=== PATIENT | female | born 2000 | race Caucasian/White ===

== ENCOUNTER 2019-07-24 12:34 | Emergency (ER) | payer MEDICAID, OTHER ==
--- NOTE | 2019-07-24 13:02 | ER Document Report ---
ED Medical Screen (RME) - General Stated Complaint: ABDOMINAL PAIN Time Seen by Provider: 07/24/19 12:57 Primary Care Provider: ROXANA TODD MD [Primary Care Provider] - Follow up as needed Mode of Arrival: Ambulatory Information source: Patient Notes: 19-year-old female presented to ED for complaint of pelvic cramping. She states that on July 19 she had a positive test done on the she had a negative test. She states she took 2 test on the and they were both positive but she is continued to have cramping. She states the only other time she has been was when she was 15 she had an . She states her last menstrual period was June 12 of this year. She does not smoke drink or do any drugs. She is just concerned because of the cramping and wants to make sure whether she is or is not . I have greeted and performed a rapid initial assessment of this patient. A comprehensive ED assessment and evaluation of the patient, analysis of test results and completion of medical decision making process will be conducted by an additional ED providers. TRAVEL OUTSIDE OF THE [place] IN LAST 30 DAYS: No - Related Data Allergies/Adverse Reactions: Penicillins Allergy (Verified 07/24/19 12:56) Past Medical History Pulmonary Medical History: Reports: Hx Asthma Psychiatric Medical History: Reports: Hx Attention Deficit Hyperactivity Disorder - Immunizations Immunizations up to date: Yes Hx Diphtheria, Pertussis, Tetanus Vaccination: Yes Physical Exam - Vital signs Vitals: Temp Pulse Resp BP Pulse Ox 98.6 F 86 16 138/73 H 100 07/24/19 12:45 07/24/19 12:45 07/24/19 12:45 07/24/19 12:45 07/24/19 12:45 Course - Vital Signs Vital signs: Temp Pulse Resp BP Pulse Ox 98.6 F 86 16 138/73 H 100 07/24/19 12:45 07/24/19 12:45 07/24/19 12:45 07/24/19 12:45 07/24/19 12:45 Doctor's Discharge - Discharge Referrals: ROXANA TODD MD [Primary Care Provider] - Follow up as needed
[2019-07-24 13:56] LABS: APPEARANCE,URINE CLEAR; BILIRUBIN,URINE NEGATIVE (NEGATIVE); COLOR,URINE STRAW; GLUCOSE, URINE NEGATIVE (NEGATIVE); KETONES,URINE NEGATIVE (NEGATIVE); LEUKOCYTE ESTERASE,URINE NEGATIVE (NEGATIVE); NITRITE,URINE NEGATIVE (NEGATIVE); PROTEIN,URINE NEGATIVE (NEGATIVE); URINE SPECIFIC GRAVITY 1.003; UROBILINOGEN,URINE NEGATIVE mg/dL (<2.0)
[2019-07-24 14:04] LABS: ABSOLUTE LYMPHOCYTES (AUTO) 1.4 10^3/uL (0.5-4.7); ABSOLUTE MONOCYTES (AUTO) 0.3 10^3/uL (0.1-1.4); ABSOLUTE NEUT (AUTO) 3.6 10^3/uL (1.7-8.2); BASOPHILS % (AUTO) 0.5 % (0-2); EOSINOPHILS % (AUTO) 0.6 % (0-6); HEMATOCRIT 37.1 % (36.0-47.0); HEMOGLOBIN 12.8 g/dL (12.0-15.5); LYMPHOCYTES % (AUTO) 26.1 % (13-45); MEAN CORPUSCULAR HEMOGLOBIN 28.7 pg (27.0-33.4); MEAN CORPUSCULAR HGB CONC 34.5 g/dL (32.0-36.0); MEAN CORPUSCULAR VOLUME 83 fl (80-97); MONOCYTES % (AUTO) 5.4 % (3-13); PLATELET COUNT 264 10^3/uL (150-450); RED BLOOD COUNT 4.45 10^6/uL (3.72-5.28); RED CELL DISTRIBUTION WIDTH 13.6 % (11.5-14.0); SEGMENTED NEUTROPHILS % (AUTO) 67.4 % (42-78); TOTAL CELLS COUNTED % (AUTO) 100 %; WHITE BLOOD COUNT 5.4 10^3/uL (4.0-10.5)
[2019-07-24 14:14] LABS: ALBUMIN 4.6 g/dL (3.5-5.0); ALKALINE PHOSPHATASE 60 U/L (38-126); ANION GAP 9 (5-19); ASPARTATE AMINO TRANSFERASE 17 U/L (14-36); BILIRUBIN,DIRECT 0.1 mg/dL (0.0-0.4); BILIRUBIN,TOTAL 0.6 mg/dL (0.2-1.3); BLOOD UREA NITROGEN 8 mg/dL (7-20); CALCIUM 9.8 mg/dL (8.4-10.2); CARBON DIOXIDE 27 mmol/L (22-30); CHLORIDE 103 mmol/L (98-107); GLUCOSE 83 mg/dL (75-110); POTASSIUM 3.7 mmol/L (3.6-5.0); TOTAL PROTEIN 7.9 g/dL (6.3-8.2)
--- NOTE | 2019-07-24 15:28 | RADIOLOGY REPORT (SQ) ---
EXAM DESCRIPTION: U/S NON OB PEL W/DOPPLER COMPLETED DATE/TIME: 07/24/2019 3:19 pm REASON FOR STUDY: Pelvic pain COMPARISON: 02/26/2016 TECHNIQUE: Dynamic and static grayscale images acquired of the pelvis via transvaginal approach and recorded on PACS. Additional selected color Doppler and spectral images recorded. LIMITATIONS: None. FINDINGS: UTERUS: Contour normal. No mass. ENDOMETRIAL STRIPE: No focal or generalized thickening. No masses. CERVIX: No nabothian cysts. RIGHT OVARY AND DOPPLER: Normal size. No worrisome masses. Normal arterial vascular flow without evid ence for torsion. LEFT OVARY AND DOPPLER: Normal size. No worrisome masses. Normal arterial vascular flow without evide nce for torsion. FREE FLUID: There is a small amount of free fluid in the cul-de-sac most likely physiologic. OTHER: No other significant finding. MEASUREMENTS: UTERUS: 7.1 x 4.8 x 4.0 cm. ENDOMETRIAL STRIPE: 1.3 cm. RIGHT OVARY: 2.9 x 2.8 x 1.8 cm. LEFT OVARY: 4.0 x 2.1 x 1.9 cm. IMPRESSION: Trace amount of free fluid the cul-de-sac most likely physiologic. No other significant findings. TECHNICAL DOCUMENTATION: JOB ID: [id number] [employer]- All Rights Reserved Rev-03/09 Reading location - IP/workstation name: [email or web address]
--- NOTE | 2019-07-24 16:04 | ER Document Report ---
ED General - General Chief Complaint: Pelvic Pain Stated Complaint: ABDOMINAL PAIN Time Seen by Provider: 07/24/19 12:57 Primary Care Provider: [facility] [Provider Group] - Follow up in 1 week Mode of Arrival: Ambulatory Notes: Patient is a 19-year-old female presents emergency department for missed menstrual cycle. She states that she feels . She is she G2, P0, incl uding this possible . States that she had 2- tests and 2+ tests at home. She has not seen her primary care provider. She adamantly denies any vaginal discharge, abdominal pain, or any other symptoms. TRAVEL OUTSIDE OF THE [place] IN LAST 30 DAYS: No - Related Data Allergies/Adverse Reactions: Penicillins Allergy (Verified 07/24/19 12:56) Past Medical History - General Information source: Patient - Social History Smoking Status: Never Smoker Family History: Reviewed & Not Pertinent Patient has suicidal ideation: No Patient has homicidal ideation: No Pulmonary Medical History: Reports: Hx Asthma Psychiatric Medical History: Reports: Hx Attention Deficit Hyperactivity Disorder - Immunizations Immunizations up to date: Yes Hx Diphtheria, Pertussis, Tetanus Vaccination: Yes Review of Systems - Review of Systems Notes: REVIEW OF SYSTEMS: CONSTITUTIONAL : Denies recent illness. Denies recent unintentional weight loss. Denies fever, chills, or sweats. EENT: Denies eye, ear, throat, or mouth pain, discharge, or symptoms. Denies nasal or sinus congestion. CARDIOVASCULAR: Denies chest pain. RESPIRATORY: Denies shortness of breath, cough, congestion, difficulty breathing, or wheezing. GASTROINTESTINAL: Denies nausea, vomiting, and diarrhea. Denies abdominal pain. Denies constipation. Last BM: GENITOURINARY: Denies difficulty urinating, burning, blood in urine, urgency or frequency. FEMALE GENITOURINARY: See HPI. MUSCULOSKELETAL: Denies neck and back pain. Denies joint pain or swelling. SKIN: Denies rash, itchiness, or lesions HEMATOLOGIC : Denies easy bruising or bleeding. LYMPHATIC: Denies swollen, painful, enlarged glands. NEUROLOGICAL: Denies no numbness or tingling denies weakness. Denies headache. Denies altered mental status. Denies alteration in speech. PSYCHIATRIC: Denies stress, anxiety, alteration in sleep patterns, or depression. All other systems reviewed and negative. Physical Exam - Vital signs Vitals: Temp Pulse Resp BP Pulse Ox 98.6 F 86 16 138/73 H 100 07/24/19 12:45 07/24/19 12:45 07/24/19 12:45 07/24/19 12:45 07/24/19 12:45 - Notes Notes: PHYSICAL EXAMINATION: GENERAL: Appears well, healthy, well-nourished, no acute distress. HEAD: Normocephalic, atraumatic. EYES: PERRL, conjunctiva normal, all extraocular movements intact, sclera nonicteric ENT: Moist mucous membranes. NECK: Supple, no noticeable swelling, redness, rash. Normal range of motion. LUNGS: Equal breath sounds bilaterally and clear to auscultation. No wheezes rales or rhonchi. CARDIOVASCULAR: S1-S2, regular rate, regular rhythm. Radial pulses 2+, normal. ABDOMEN: Normoactive bowel sounds. Soft, nontender, no guarding, no rebound tenderness, and no masses palpated. EXTREMITIES: Normal strength and range of motion, no pitting or edema. No cyanosis. NEUROLOGICAL: Moves all extremities upon command. Strength 5/5 in all extremities. PSYCH: Normal mood, normal affect. SKIN: Warm, dry. No rash, lesions, ulcerations noted. Normal skin turgor. SCRUMMASTER: White Discharge noted. Cervical motion tenderness noted, no adnexal tenderness noted. Course - Re-evaluation Re-evalutation: 07/24/19 16:01 Transvaginal ultrasound is negative for a tubo-ovarian torsion, or any tubo- ovarian abscess. There is free fluid in the cul-de-sac. I did a pelvic exam with MARK Lara at bedside. There was a small amount of white fluid noted. Cervical motion tenderness noted. Patient states that now she ended up having pain with the pelvic exam and states that she may have had some discharge. Will await wet mount results. 07/24/19 23:07 Wet mount shows 3+ epithelial cells and 3+ bacteria. No yeast or trichomonas noted. Awaiting gonorrhea and chlamydia results. I will empirically treat the patient with 250 mg of Rocephin. If her chlamydia comes back positive, I will call in a prescription for azithromycin. She will be treated with doxycycline and Flagyl for pelvic inflammatory disease. She will follow-up with [facility] or her PAYROLL ASSISTANT. She is in agreement with plan. Follow-up precautions were given. Verbal discharge instructions were given to the patient. They verbalized understanding. They are stable for discharge. - Vital Signs Vital signs: Temp Pulse Resp BP Pulse Ox 98.3 F 92 14 111/78 100 07/24/19 16:52 07/24/19 16:52 07/24/19 16:52 07/24/19 16:52 07/24/19 16:52 - Laboratory Result Diagrams: 07/24/19 13:30 07/24/19 13:30 Discharge - Discharge Clinical Impression: Pelvic inflammatory disease (PID), Bacterial vaginosis Condition: Stable Disposition: HOME, SELF-CARE Instructions: Pelvic Pain ([facility]) Additional Instructions: Your are being treated for pelvic inflammatory disease. You are being started on 2 different antibiotics and you need to take these until you finish them. Please return if you have worsening pain, persistent vomiting, spike a fever greater than 101F, or have any other symptoms that are concerning to you. Please follow closely with you primary care physician or your PAYROLL ASSISTANT at your earliest ability. Prescriptions: Doxycycline Hyclate 100 mg PO BID #28 capsule Metronidazole [Flagyl 500 mg Tablet] 500 mg PO Q6H #28 tablet Referrals: [facility] [Provider Group] - Follow up in 1 week
[2019-07-24 16:17] LABS: BACTERIA (WET MOUNT) 3+ BACTERIA SEEN; EPITHELIALS (WET MOUNT) 3+ EPITHELIALS SEEN; RBCS (WET MOUNT) NO RBCS SEEN; T.VAGINALIS (WET MOUNT) NO TRICHOMONAS SEEN; WBCS (WET MOUNT) FEW WBCS SEEN; YEAST (WET MOUNT) NO YEAST SEEN
[2019-07-24] MEDS ORDERED: CEFTRIAXONE INJ 250 MG VIAL IM ONE (16:22)
[2019-07-24] MEDS ORDERED: LIDOCAINE 1% INJ-PF (10 MG/ML) 30 ML SDV INJ ONE (16:22)
[2019-07-24 16:54] VITALS: BP 111/78
[2019-07-24 17:44] LABS: CHLAM PCR NOT DETECTED (NOT DETECT)
== END 2019-07-24 17:01 | disposition home or self-care (01) ==
LOC: ER 12:34
DX: N73.9 Female pelvic inflammatory disease, unspecified (principal); N76.0 Acute vaginitis; B96.89 Other specified bacterial agents as the cause of diseases classified elsewhere; R10.2 Pelvic and perineal pain; R10.9 Unspecified abdominal pain; J45.909 Unspecified asthma, uncomplicated
CPT/HCPCS: 36415; 87210; 84702; 85025; 80053; 81001; 87491; 87591; 76856; 93976; J3490; J0696

== ENCOUNTER 2020-03-19 20:46 | Inpatient (IN) | payer OTHER ==
[2020-03-19 21:48] LABS: APPEARANCE,URINE SLIGHTLY-CLOUDY; BILIRUBIN,URINE NEGATIVE (NEGATIVE); COLOR,URINE YELLOW; GLUCOSE, URINE NEGATIVE (NEGATIVE); KETONES,URINE NEGATIVE (NEGATIVE); LEUKOCYTE ESTERASE,URINE NEGATIVE (NEGATIVE); NITRITE,URINE NEGATIVE (NEGATIVE); PROTEIN,URINE 30 mg/dL (NEGATIVE); URINE SPECIFIC GRAVITY 1.015; UROBILINOGEN,URINE NEGATIVE mg/dL (<2.0)
[2020-03-19 21:50] LABS: ABSOLUTE LYMPHOCYTES (AUTO) 1.6 10^3/uL (0.5-4.7); ABSOLUTE MONOCYTES (AUTO) 0.6 10^3/uL (0.1-1.4); ABSOLUTE NEUT (AUTO) 8.2 10^3/uL (1.7-8.2); BASOPHILS % (AUTO) 0.2 % (0-2); EOSINOPHILS % (AUTO) 0.3 % (0-6); HEMATOCRIT 28.9 % (36.0-47.0); LYMPHOCYTES % (AUTO) 15.3 % (13-45); MEAN CORPUSCULAR HEMOGLOBIN 28.4 pg (27.0-33.4); MEAN CORPUSCULAR HGB CONC 34.6 g/dL (32.0-36.0); MEAN CORPUSCULAR VOLUME 82 fl (80-97); MONOCYTES % (AUTO) 5.5 % (3-13); PLATELET COUNT 223 10^3/uL (150-450); RED BLOOD COUNT 3.53 10^6/uL (3.72-5.28); RED CELL DISTRIBUTION WIDTH 12.5 % (11.5-14.0); SEGMENTED NEUTROPHILS % (AUTO) 78.7 % (42-78); TOTAL CELLS COUNTED % (AUTO) 100 %; WHITE BLOOD COUNT 10.4 10^3/uL (4.0-10.5)
[2020-03-19 22:02] LABS: URINE BARBITURATES SCREEN NEGATIVE; URINE BENZODIAZEPINES SCREEN NEGATIVE; URINE COCAINE SCREEN NEGATIVE; URINE MARIJUANA (THC) SCREEN NEGATIVE; URINE METHADONE SCREEN NEGATIVE; URINE PHENCYCLIDINE SCREEN NEGATIVE
[2020-03-19 22:12] LABS: URINE AMPHETAMINES SCREEN UNCONFIRMED POSITIVE
[2020-03-19 22:30] LABS: BACTERIA (WET MOUNT) 4+ BACTERIA SEEN; EPITHELIALS (WET MOUNT) 3+ EPITHELIALS SEEN; RBCS (WET MOUNT) 4+ RBCS SEEN; T.VAGINALIS (WET MOUNT) NO TRICHOMONAS SEEN; WBCS (WET MOUNT) 3+ WBCS SEEN; YEAST (WET MOUNT) NO YEAST SEEN
--- NOTE | 2020-03-19 22:58 | RADIOLOGY REPORT (SQ) ---
EXAM DESCRIPTION: US LIMITED COMPLETED DATE/TME: 03/19/2020 00:00 CLINICAL HISTORY: 19 years, Female, cervical length, known previa, bleeding, abrup? COMPARISON: None. TECHNIQUE: Emergent second/third trimester ultrasound LIMITATIONS: None. FINDINGS: There is a single, live intrauterine gestation in the breech presentation. The placenta is 3.1 cm in length. The placenta is anterior in location, and extends inferiorly where it completely covers the cervical os consistent with complete placenta previa. Grade 1 echotexture. heart tones 150 bpm. Amniotic fluid index 13.3 cm. A detailed anatomic assessment was not performed at this time. Approximate weight 4 lbs. 5 oz. Ratios: HC to a.c.: 1.05 FL to BPD: 77.4 FL to HC: 21.1 FL to a.c.: 22.2 Ultrasound age 32 weeks 3 days IMPRESSION: Findings consistent with complete placenta previa, as described above. Single live IUP with ultrasound age 32 weeks 3 days. Close obstetric follow-up recommended. copyright 2010 [employer]- All Rights Reserved
[2020-03-19] MEDS ORDERED: BETAMET ACET/BETAMET NA INJ 6 MG/1 ML IM ONE (23:30)
[2020-03-19] MEDS ORDERED: BETAMET ACET/BETAMET NA INJ 6 MG/1 ML ONE (23:37)
[2020-03-19 23:52] LABS: CHLAM PCR NOT DETECTED (NOT DETECT)
--- NOTE | 2020-03-19 23:58 | Admission Physical ---
Datetime Report Generated by CPN: 03/19/2020 23:58 CURRENT ADMISSION Chief Complaint: Vaginal Bleeding Indication for Induction: Not Applicable Admit Impression : , Intrauterine ; No Active Labor; Intact Membranes; Observation/Evaluation Admit Plan: Admit to Unit; Observation/Evaluation ALLERGIES Medication Allergies: Yes Medication Allergies: Penicillins (07/24/2019) Latex: No Latex Allergies OBSTETRICAL HISTORY EDC: 05/15/2020 00:00 : 2 Para: 0 Placenta Previa/Abruption: Yes SEE RECORDS Alcohol: No Marijuana : No Cocaine: No Other Illicit Drugs: No Cigarettes: Never Smoker. [id number] PHYSICAL EXAM General: Normal HEENT: Normal Neurologic: Normal Thyroid: Deferred Heart: Normal Lungs: Normal Breast: Deferred Back: Normal Abdomen: Normal Genitourinary Exam: Normal Extremities: Normal DTRs: Normal Pelvic Type: Adequate Vital Signs: Reviewed VAGINAL EXAM Dilatation: 0 Effacement: 0 Station: -3 Contraction Comments: none MEMBRANES Membranes: Intact FETUS A EGA: 31.6 Monitoring: External US FHR- Baseline: 120 Variability: Moderate 6-25bpm Accelerations: 15X15 Decelerations: None Presentation: Breech Admit Comment: 19yo at 31+6ega presents for vaginal bleeding. Known complete previa. H/o bleeding episode at [facility] 29, KB negative on that admission. C/S is scheduled for 38+6ega - however, needs to be at 37wks due to complete previa - now ith second bleeding episode. Will send message again to have rescheduled to 37wks. Since 2nd bleeding episode will give steroids. Admit and repeat labs in am. Currently no bleeding - scant blood on SSE, os closed. Cervical length 3.1cm and closed. Pad counts and serial monitoring. Reviewed plan of care. INFORMED CONSENT Informed Consent Obtained: Vaginal Delivery; Risks, Benefits and Alternatives Discussed Signature: with User ID: [email or web address]
--- NOTE | 2020-03-20 00:36 | Non Stress Test Report ---
Non Stress Test Datetime Report Generated by CPN: 03/20/2020 00:36 DEMOGRAPHIC EGA NST: 31.6 INDICATION Indication for Study (NST) Other: gestational age > 32 weeks MONITORING Monitor Explained: Monitor Explained; Test Explained; Patient Verbalized Understanding Time on Monitor: 03/19/2020 21:37 Time off Monitor: 03/19/2020 23:17 NST Duration: 100 NST INTERVENTIONS NST Interventions: PO Hydration; Reposition Patient Physician Notified NST: Dr. Manzo BABY A: [id number] BABY A Movement : Present Contraction Frequency : 0 FHR Baseline : 140 Accelerations : 15X15 Decelerations : None Variability : Moderate 6-25bpm NST Review: Meets Criteria for Reactive NST NST Review and Verified By : JORGE LUIS Garcia NST Results: Reactive NST REPORT Report Trigger: Send Report
[2020-03-20 06:57] LABS: ABSOLUTE LYMPHOCYTES (AUTO) 0.7 10^3/uL (0.5-4.7); ABSOLUTE MONOCYTES (AUTO) 0.2 10^3/uL (0.1-1.4); ABSOLUTE RETICS # 0.089 10^6/uL (0.028-0.122); BASOPHILS % (AUTO) 0.1 % (0-2); HEMOGLOBIN 9.6 g/dL (12.0-15.5); LYMPHOCYTES % (AUTO) 6.3 % (13-45); MEAN CORPUSCULAR HEMOGLOBIN 28.4 pg (27.0-33.4); MEAN CORPUSCULAR HGB CONC 34.5 g/dL (32.0-36.0); MEAN CORPUSCULAR VOLUME 83 fl (80-97); MONOCYTES % (AUTO) 1.6 % (3-13); PLATELET COUNT 204 10^3/uL (150-450); RED BLOOD COUNT 3.39 10^6/uL (3.72-5.28); RED CELL DISTRIBUTION WIDTH 12.8 % (11.5-14.0); RETICULOCYTE COUNT (AUTO) 2.62 % (0.66-2.85); TOTAL CELLS COUNTED % (AUTO) 100 %; WHITE BLOOD COUNT 10.9 10^3/uL (4.0-10.5)
[2020-03-20 07:17] LABS: IRON(TIBC) 32.7 ug/dL (37-170)
[2020-03-20 07:49] LABS: INTERNATIONAL RATION (INR) 0.96; PROTHROMBIN TIME 12.8 SEC (11.4-15.4)
[2020-03-20 07:50] LABS: PARTIAL THROMBOPLASTIN TIME 25.7 SEC (23.5-35.8)
[2020-03-20 07:52] LABS: FERRITIN 4.61 ng/mL (6.2-137.0)
[2020-03-20 08:28] LABS: FOLATE > 20.00 ng/mL (>2.76)
--- NOTE | 2020-03-20 08:59 | PDOC PROGRESS REPORT ---
Subjective Progress Note for:: 03/20/20 Subjective:: Dark brown blood today. Reason For Visit: Physical Exam - Physical Exam Vital Signs: Temp Pulse Resp BP Pulse Ox 97.8 F 102 H 18 111/56 L 98 03/20/20 07:20 03/20/20 07:20 03/20/20 07:20 03/20/20 07:20 03/20/20 07:20 Intake & Output 03/19/20 03/20/20 03/21/20 06:59 06:59 06:59 Output Total 0 Balance 0 Weight 94.8 kg General appearance: PRESENT: no acute distress, well-developed, well-nourished Head exam: PRESENT: atraumatic, normocephalic Result Laboratory Results: 03/20/20 06:18 03/19/20 03/19/20 03/19/20 20:59 21:35 21:35 WBC 10.4 RBC 3.53 L Hgb 10.0 L Hct 28.9 L MCV 82 MCH 28.4 MCHC 34.6 RDW 12.5 Plt Count 223 Seg Neutrophils % 78.7 H Retic Count (auto) Iron TIBC % Saturation Transferrin Ferritin Vitamin B12 Folate Urine Color YELLOW Urine Appearance SLIGHTLY-CLOUDY Urine pH 6.0 Ur Specific [place] 1.015 Urine Protein 30 H Urine Glucose (UA) NEGATIVE Urine Ketones NEGATIVE Urine Blood LARGE H Urine Nitrite NEGATIVE Ur Leukocyte Esterase NEGATIVE Urine WBC (Auto) 4 Urine RBC (Auto) 66 Blood Type A POSITIVE Antibody Screen NEGATIVE 03/20/20 03/20/20 03/20/20 06:18 06:18 06:18 WBC 10.9 H RBC 3.39 L Hgb 9.6 L Hct 28.0 L MCV 83 MCH 28.4 MCHC 34.5 RDW 12.8 Plt Count 204 Seg Neutrophils % 92.0 H Retic Count (auto) 2.62 Iron 32.7 L TIBC 495 H % Saturation 7 Transferrin 369.20 Ferritin 4.61 L Vitamin B12 198.0 L Folate > 20.00 Urine Color Urine Appearance Urine pH Ur Specific [place] Urine Protein Urine Glucose (UA) Urine Ketones Urine Blood Urine Nitrite Ur Leukocyte Esterase Urine WBC (Auto) Urine RBC (Auto) Blood Type Antibody Screen Impressions: Obstetrics Ultrasound 03/19/20 00:00 IMPRESSION: Findings consistent with complete placenta previa, as described above. Single live IUP with ultrasound age 32 weeks 3 days. Close obstetric follow-up recommended. copyright 2010 [employer]- All Rights Reserved Assessment & Plan - Diagnosis (1) Anemia Qualifiers: Anemia type: iron deficiency Is this a current diagnosis for this admission?: Yes (2) Complete placenta previa with hemorrhage, third trimester Is this a current diagnosis for this admission?: Yes - Time Time Spent with patient: 15-24 minutes - Plan Summary Plan Summary: plan to complete steroid series. continue rest
[2020-03-20] MEDS: DOCUSATE SODIUM 100 MG CAPSULE PO SCH ×2 (10:14→17:29)
[2020-03-20] MEDS: FERROUS SULFATE 325 MG TABLET PO SCH (10:14)
[2020-03-20] MEDS ORDERED: BETAMET ACET/BETAMET NA INJ 6 MG/1 ML IM SCH ×2 (17:30→23:00)
[2020-03-21 09:27] VITALS: BP 95/61
[2020-03-21] MEDS: DOCUSATE SODIUM 100 MG CAPSULE PO SCH (09:48)
[2020-03-21] MEDS: FERROUS SULFATE 325 MG TABLET PO SCH (09:48)
== END 2020-03-21 14:44 | disposition home or self-care (01) | DRG 833 ==
LOC: LC 20:46 → OBSVTOIN 23:11 → LR 23:11 → 2S 03-20 00:56
PROVIDERS: ADMIT Student in an Organized Health Care Education/Training Program; ATTEND Student in an Organized Health Care Education/Training Program
DX: O44.13 Complete placenta previa with hemorrhage, third trimester (principal); O99.013 Anemia complicating pregnancy, third trimester; D50.9 Iron deficiency anemia, unspecified; Z3A.31 31 weeks gestation of pregnancy; Z88.0 Allergy status to penicillin
CPT/HCPCS: 36415; 59025; 76815; 80307; 81001; 82607; 82728; 82746; 83540; 83550; 84466; 85025; 85045; 85460; 85610; 85730; 86592; 86850; 86900; 86901; 87210; 87491; 87591; J0702

== ENCOUNTER 2020-03-25 16:33 | Outpatient (CLI) | payer OTHER ==
[2020-03-25 17:25] LABS: APPEARANCE,URINE CLEAR; BILIRUBIN,URINE NEGATIVE (NEGATIVE); COLOR,URINE STRAW; GLUCOSE, URINE NEGATIVE (NEGATIVE); KETONES,URINE NEGATIVE (NEGATIVE); LEUKOCYTE ESTERASE,URINE NEGATIVE (NEGATIVE); NITRITE,URINE NEGATIVE (NEGATIVE); PROTEIN,URINE NEGATIVE (NEGATIVE); URINE SPECIFIC GRAVITY 1.009; UROBILINOGEN,URINE NEGATIVE mg/dL (<2.0)
[2020-03-25 18:29] LABS: URINE BARBITURATES SCREEN NEGATIVE; URINE BENZODIAZEPINES SCREEN NEGATIVE; URINE COCAINE SCREEN NEGATIVE; URINE MARIJUANA (THC) SCREEN NEGATIVE; URINE METHADONE SCREEN NEGATIVE; URINE PHENCYCLIDINE SCREEN NEGATIVE
[2020-03-25 18:31] LABS: URINE AMPHETAMINES SCREEN UNCONFIRMED POSITIVE
--- NOTE | 2020-03-25 18:56 | RADIOLOGY REPORT (SQ) ---
EXAM DESCRIPTION: U/S OB LIMITED IMAGES COMPLETED DATE/TIME: 03/25/2020 6:34 pm REASON FOR STUDY: cervical length, placenta, brown discharge COMPARISON: 03/19/2020. TECHNIQUE: Limited transabdominal grayscale ultrasound for evaluation of specific requested obstetri maurice parameters. LIMITATIONS: None. FINDINGS: CERVICAL LENGTH: 3.1 cm Closed. ARCADIO: 13.1 cm. LVP 6.5 cm x 6.2 cm with the vernix. FHR: 173 beats per minute. PRESENTATION: Breech. PLACENTA: Posterior. ANATOMY: Not assessed OTHER: The patient has a known history of placenta previa. IMPRESSION: LIMITED OBSTETRICAL ULTRASOUND WITH MEASURED PARAMETERS DELINEATED ABOVE. Trimester of : Third trimester - 28 weeks to delivery. TECHNICAL DOCUMENTATION: JOB ID: [id number] [employer]- All Rights Reserved Reading location - IP/workstation name: [email or web address]
--- NOTE | 2020-03-25 19:22 | Non Stress Test Report ---
Non Stress Test Datetime Report Generated by CPN: 03/25/2020 19:22 DEMOGRAPHIC EGA NST: 32.5 INDICATION Indication for Study (NST) Other: LABOR CHECK VITAL SIGNS Temperature - NST: 99.0 Pulse - NST: 107 RESP - NST: 20 NBPSYS NST: 92 NBPDIA NST: 52 MONITORING Monitor Explained: Monitor Explained; Test Explained; Patient Verbalized Understanding Time on Monitor: 03/25/2020 16:56 Time off Monitor: 03/25/2020 18:05 NST Duration: 69 NST INTERVENTIONS NST Interventions: PO Hydration; Reposition Patient Physician Notified NST: DR MOHAN REVIEWED STRIP BABY A: [id number] BABY A Movement : Present Contraction Frequency : X2 FHR Baseline : 145 Accelerations : 15X15 Decelerations : None Variability : Moderate 6-25bpm NST Review: Meets Criteria for Reactive NST NST Review and Verified By : Eva NST Results: Reactive NST REPORT Report Trigger: Send Report
== END 2020-03-25 18:59 | disposition home or self-care (01) ==
LOC: LC 16:33
PROVIDERS: ATTEND Student in an Organized Health Care Education/Training Program
DX: O46.93 Antepartum hemorrhage, unspecified, third trimester (principal); R10.2 Pelvic and perineal pain; Z3A.32 32 weeks gestation of pregnancy; Z88.0 Allergy status to penicillin
CPT/HCPCS: 59025; 76815; 80307; 81001

== ENCOUNTER 2020-04-05 07:32 | Inpatient (IN) | payer OTHER ==
[2020-04-05] MEDS ORDERED: RINGERS SOLUTION,LACTATED 1,000 ML IV ONE (07:48)
[2020-04-05] MEDS ORDERED: RINGERS SOLUTION,LACTATED 1,000 ML IV PRN ×3 (07:48→15:42)
--- NOTE | 2020-04-05 08:35 | Admission Physical ---
Datetime Report Generated by CPN: 04/05/2020 08:35 CURRENT ADMISSION Chief Complaint: Uterine Contractions; Suspected Ruptured Membranes; Vaginal Bleeding Indication for Induction: Not Applicable Admit Impression : , Intrauterine ; Primary Section Admit Impression- Other: Previa Admit Plan: Admit to Unit ALLERGIES Medication Allergies: Yes Medication Allergies: Penicillins (07/24/2019) Latex: Unknown OBSTETRICAL HISTORY EDC: 05/15/2020 00:00 : 2 Para: 0 Placenta Previa/Abruption: Yes Depression/PP Depression: Yes Current Procedures: Ultrasound SEE RECORDS Alcohol: No Marijuana : No Cocaine: No Other Illicit Drugs: No Cigarettes: Never Smoker. [id number] MEDICAL HISTORY Pulmonary Disease (Asthma, TB): Yes Medical History Comments: ADD PHYSICAL EXAM General: Normal HEENT: Normal Neurologic: Normal Thyroid: Normal Heart: Normal Lungs: Normal Breast: Deferred Back: Normal Abdomen: Normal Genitourinary Exam: Normal Extremities: Normal DTRs: Normal Pelvic Type: Adequate Vital Signs: Reviewed VAGINAL EXAM Dilatation: 0 Effacement: 0 Station: -3 Contraction Comments: none MEMBRANES Membranes: Intact FETUS A EGA: 34.2 Monitoring: External US FHR- Baseline: 120 Variability: Moderate 6-25bpm Accelerations: 15X15 Decelerations: None FHR Category: Category I Presentation: Breech Admit Comment: Third bleed with placenta previa. She now has SROM. We will proceed with delivery with C section. INFORMED CONSENT Informed Consent Obtained: Vaginal Delivery; Risks, Benefits and Alternatives Discussed Signature: with User ID: [email or web address]
[2020-04-05] MEDS ORDERED: CEFAZOLIN SODIUM 2 GM in DEXTROSE 5%-WATER 50 ML IV PRN (08:45)
[2020-04-05] MEDS ORDERED: CITRIC ACID/SODIUM CITRATE ORAL SOLN 15 ML UDCUP ONE (08:47)
[2020-04-05] MEDS ORDERED: CEFAZOLIN 1 GM/D5W RTU 0 GM/0 ML RTUPB IV ONE (08:47)
[2020-04-05] MEDS ORDERED: AZITHROMYCIN 500 MG in DEXTROSE 5%-WATER 250 ML IV PRN (08:52)
[2020-04-05] MEDS ORDERED: AZITHROMYCIN INJ 500 MG VIAL IV ONE (09:09)
[2020-04-05] MEDS ORDERED: MISOPROSTOL 0.2 MG TABLET ONE (09:17)
[2020-04-05 09:22] LABS: ABSOLUTE LYMPHOCYTES (AUTO) 1.5 10^3/uL (0.5-4.7); ABSOLUTE MONOCYTES (AUTO) 0.5 10^3/uL (0.1-1.4); BASOPHILS % (AUTO) 0.3 % (0-2); EOSINOPHILS % (AUTO) 0.5 % (0-6); HEMATOCRIT 31.5 % (36.0-47.0); HEMOGLOBIN 10.6 g/dL (12.0-15.5); LYMPHOCYTES % (AUTO) 18.3 % (13-45); MEAN CORPUSCULAR HEMOGLOBIN 28.5 pg (27.0-33.4); MEAN CORPUSCULAR HGB CONC 33.8 g/dL (32.0-36.0); MEAN CORPUSCULAR VOLUME 84 fl (80-97); MONOCYTES % (AUTO) 6.4 % (3-13); PLATELET COUNT 172 10^3/uL (150-450); RED BLOOD COUNT 3.73 10^6/uL (3.72-5.28); RED CELL DISTRIBUTION WIDTH 14.4 % (11.5-14.0); SEGMENTED NEUTROPHILS % (AUTO) 74.5 % (42-78); TOTAL CELLS COUNTED % (AUTO) 100 %
[2020-04-05 09:25] LABS: APPEARANCE,URINE SLIGHTLY-CLOUDY; BILIRUBIN,URINE NEGATIVE (NEGATIVE); COLOR,URINE YELLOW; GLUCOSE, URINE NEGATIVE (NEGATIVE); KETONES,URINE NEGATIVE (NEGATIVE); LEUKOCYTE ESTERASE,URINE NEGATIVE (NEGATIVE); NITRITE,URINE NEGATIVE (NEGATIVE); PROTEIN,URINE 30 mg/dL (NEGATIVE); URINE SPECIFIC GRAVITY 1.014; UROBILINOGEN,URINE NEGATIVE mg/dL (<2.0)
[2020-04-05 09:47] LABS: URINE BARBITURATES SCREEN NEGATIVE; URINE BENZODIAZEPINES SCREEN NEGATIVE; URINE COCAINE SCREEN NEGATIVE; URINE MARIJUANA (THC) SCREEN NEGATIVE; URINE METHADONE SCREEN NEGATIVE; URINE PHENCYCLIDINE SCREEN NEGATIVE
[2020-04-05] MEDS ORDERED: KETOROLAC TROMETHAMINE INJ/PF 30 MG/1 ML SDV ONE (09:47)
[2020-04-05] MEDS ORDERED: OXYTOCIN 10 UNIT/ML VIAL ONE ×2 (09:47→10:35)
[2020-04-05] MEDS ORDERED: FENTANYL CITRATE INJ/PF 100 MCG/2 ML AMPUL ONE (09:47)
[2020-04-05] MEDS ORDERED: OXYTOCIN/0.9 % SODIUM CHLORIDE 0 UNIT/0 ML RTUINJ ONE (09:48)
[2020-04-05] MEDS ORDERED: ACETAMINOPHEN 1,000 MG/100 ML RTUPB IV ONE (09:48)
[2020-04-05] MEDS ORDERED: ONDANSETRON HCL INJ/PF 4 MG/2 ML SDV ONE (09:48)
[2020-04-05] MEDS ORDERED: MIDAZOLAM 2 MG/2 ML INJ ONE (09:48)
[2020-04-05] MEDS ORDERED: EPHEDRINE SULFATE INJ 50 MG/1 ML AMPULE ONE (09:48)
[2020-04-05 09:53] LABS: URINE AMPHETAMINES SCREEN UNCONFIRMED POSITIVE
[2020-04-05] MEDS ORDERED: ACETAMINOPHEN 1,000 MG/100 ML RTUPB IV PRN (11:01)
[2020-04-05] MEDS ORDERED: DIPH/PERTUSS(ACELL)/TETANUS VAC/PF 0.5 ML SYR (>=10YO) IM PRN (11:01)
[2020-04-05] MEDS ORDERED: OXYTOCIN/0.9 % SODIUM CHLORIDE 30 UNIT/500 ML RTUINJ IV PRN (11:01)
[2020-04-05] MEDS ORDERED: OXYCODONE-ACETAMINOPHEN 5-325 MG TABLET PO PRN (11:01)
[2020-04-05] MEDS ORDERED: ACETAMINOPHEN 325 MG TABLET PO PRN (11:01)
[2020-04-05] MEDS ORDERED: PROMETHAZINE HCL INJ 25 MG/1 ML VIAL IV PRN (11:01)
[2020-04-05] MEDS ORDERED: SIMETHICONE 80 MG TAB.CHEW PO PRN (11:01)
[2020-04-05] MEDS ORDERED: MEASLES,MUMPS&RUBELLA VACC/PF 0.5 ML VIAL SUBCUT PRN (11:01)
--- NOTE | 2020-04-05 11:07 | Operative Report ---
Operative Report DATE OF SURGERY: 04/05/20 PREOPERATIVE DIAGNOSIS: Placenta previa with ruptured membranes and bleeding POSTOPERATIVE DIAGNOSIS: Placenta previa with a posterior accreta with rupture membranes and bleeding OPERATION: Primary via low transverse uterine incision SURGEON: KIT ENCARNACION ANESTHESIA: Spinal TISSUE REMOVED OR ALTERED: Placenta COMPLICATIONS: Placenta accreta ESTIMATED BLOOD LOSS: 800 cc INTRAOPERATIVE FINDINGS: Viable infant crying at delivery. Tubes and ovaries were normal. Patient had a placenta previa with a piece of placenta and an accreta attachment to the posterior wall of the uterus. PROCEDURE: Patient was taken to the OR and placed in supine position after her spinal anesthesia. She is prepared and draped in sterile fashion. Jackson was placed for drainage of the bladder. Low transverse incision was made and carried down the level of the fascia. The fascial incision was made with knife and extended bilaterally with curved Ferguson scissors. The fascia was off the rectus muscles using sharp and blunt dissection. The rectus muscles are in the midline. The peritoneum was entered without incident. Bladder blade was placed in uterine segment was identified. A low transverse incision was made creating a bladder flap. Bladder blade was placed low transverse uterine incision was made with the knife and extended with fingertips. The baby was delivered with some fundal pressure. Mouth and nose were suctioned free. The cord is doubly clamped and cut. Baby is passed off to the insurance office supervisor in attendance. The placenta was manually extracted with trailing membranes. A portion of the placenta near the cervix was delivered separately than the rest of the placenta. And appeared to be attached to the posterior wall of the uterus. The area of attachment was oversewn with interrupted [id number] 0 chromic suture which stopped the majority of the bleeding. The uterus was externalized wrapped in a moist lap sponge. Uterine contents wiped free. Uterus was closed with a running locking layer of 0 chromic suture using the second layer to imbricate the first completing a double layer closure of the uterus. The serosa was closed with a running 2-0 chromic stitch. The pelvis was irrigated and suctioned free of fluid the uterus was replaced in the abdomen. The abdominal wall peritoneum was closed with running 2-0 chromic stitch. Fascia was closed with a running 0 Vicryl in 2 segments. Sb's layer was brought together with 0 plain gut stitch and the skin was closed with running subcuticular 4-0 undyed Vicryl stitch. The wound was dressed mother and baby did well.
[2020-04-05 12:09] LABS: MEAN CORPUSCULAR HEMOGLOBIN 28.4 pg (27.0-33.4); MEAN CORPUSCULAR HGB CONC 33.5 g/dL (32.0-36.0); MEAN CORPUSCULAR VOLUME 85 fl (80-97); PLATELET COUNT 168 10^3/uL (150-450); RED BLOOD COUNT 2.83 10^6/uL (3.72-5.28); RED CELL DISTRIBUTION WIDTH 14.1 % (11.5-14.0); WHITE BLOOD COUNT 9.3 10^3/uL (4.0-10.5)
[2020-04-05] MEDS ORDERED: PROMETHAZINE HCL INJ 25 MG/1 ML VIAL ONE (12:45)
[2020-04-05] MEDS ORDERED: HYDROMORPHONE HCL INJ/PF 2 MG/ML AMPULE ONE (12:45)
[2020-04-05] MEDS: HYDROMORPHONE HCL INJ/PF 2 MG/ML AMPULE IV PRN ×2 (12:50→20:21)
[2020-04-05] MEDS: KETOROLAC TROMETHAMINE INJ/PF 30 MG/1 ML SDV IV SCH ×2 (14:11→21:36)
[2020-04-05] MEDS: DOCUSATE SODIUM 100 MG CAPSULE PO SCH (17:20)
[2020-04-05] MEDS: OXYCODONE-ACETAMINOPHEN 5-325 MG TABLET PO PRN (17:20)
[2020-04-06] MEDS: OXYCODONE-ACETAMINOPHEN 5-325 MG TABLET PO PRN ×2 (03:52→14:56)
[2020-04-06] MEDS: KETOROLAC TROMETHAMINE INJ/PF 30 MG/1 ML SDV IV SCH (05:42)
[2020-04-06 07:04] LABS: HEMATOCRIT 22.3 % (36.0-47.0); MEAN CORPUSCULAR HEMOGLOBIN 28.7 pg (27.0-33.4); MEAN CORPUSCULAR HGB CONC 33.7 g/dL (32.0-36.0); MEAN CORPUSCULAR VOLUME 85 fl (80-97); PLATELET COUNT 153 10^3/uL (150-450); RED BLOOD COUNT 2.62 10^6/uL (3.72-5.28); RED CELL DISTRIBUTION WIDTH 14.4 % (11.5-14.0); WHITE BLOOD COUNT 10.9 10^3/uL (4.0-10.5)
[2020-04-06 07:09] LABS: HEMOGLOBIN 7.5 g/dL (12.0-15.5)
[2020-04-06] MEDS ORDERED: IRON SUCROSE COMPLEX INJ/PF 100 MG/5 ML SDV IV ONE (09:30)
[2020-04-06] MEDS: PRENATAL VITAMIN W DHA CAPSULE PO SCH (09:34)
[2020-04-06] MEDS: DOCUSATE SODIUM 100 MG CAPSULE PO SCH ×2 (09:34→17:03)
--- NOTE | 2020-04-06 09:40 | PDOC PROGRESS REPORT ---
Subjective-OB Progress Note for:: 04/06/20 Subjective: Pt doing well, no concerns. She is ambulatory, reports reg diet, voiding without difficulty, light bleeding and +flatus. Physical Exam (OB) Vital Signs: Temp Pulse Resp BP Pulse Ox 97.8 F 71 18 99/45 L 100 04/06/20 07:28 04/06/20 07:28 04/06/20 07:28 04/06/20 07:28 04/06/20 07:28 Intake & Output 04/05/20 04/06/20 04/07/20 06:59 06:59 06:59 Intake Total 480 Output Total 2600 Balance -2120 Weight 97 kg - PIH/Pre-Eclampsia DTR's: 1 + Clonus: Negative Headache: Absent Epigastric Pain: No Visual Changes: No - Dressing Removed: No Incision: Dressing Closure Type: op site - Lochia Lochia Amount: Scant < 10 ml Lochia Color: Rubra/Red - Abdomen Description: Soft, Round Hernia Present: No Fundal Description: Firm, Midline Fundal Height: u/u - u/2 Objective-Diagnostic Laboratory: 04/06/20 06:42 04/05/20 04/05/20 04/06/20 08:46 11:34 06:42 WBC 9.3 10.9 H RBC 2.83 L 2.62 L Hgb 8.0 L D 7.5 L Hct 24.0 L 22.3 L MCV 85 85 MCH 28.4 28.7 MCHC 33.5 33.7 RDW 14.1 H 14.4 H Plt Count 168 153 Blood Type A POSITIVE Antibody Screen NEGATIVE Assessment and Plan(PN) - Assessment and Plan (1) Delivery by section Is this a current diagnosis for this admission?: Yes (2) premature rupture of membranes (PPROM) delivered, current hospitalization Is this a current diagnosis for this admission?: Yes (3) Anemia Qualifiers: Anemia type: other cause Other causes of anemia: acute posthemorrhagic Qualified Code(s): D62 - Acute posthemorrhagic anemia Is this a current diagnosis for this admission?: Yes (4) Complete placenta previa with hemorrhage, third trimester Is this a current diagnosis for this admission?: Yes - Time Spent with Patient Time with patient: Less than 15 minutes Medications reviewed and adjusted accordingly: Yes - Disposition Anticipated Discharge: Home Within: within 24 hours
[2020-04-06] MEDS: IBUPROFEN 800 MG TABLET PO SCH ×2 (11:20→17:03)
[2020-04-07] MEDS: IBUPROFEN 800 MG TABLET PO SCH ×4 (00:52→17:20)
--- NOTE | 2020-04-07 09:15 | PDOC PROGRESS REPORT ---
Subjective-OB Progress Note for:: 04/07/20 Subjective: Thinking about going home today. Physical Exam (OB) Vital Signs: Temp Pulse Resp BP Pulse Ox 97.8 F 76 16 102/60 100 04/07/20 07:31 04/07/20 07:31 04/07/20 07:31 04/07/20 07:31 04/07/20 07:31 Intake & Output 04/06/20 04/07/20 04/08/20 06:59 06:59 06:59 Intake Total 480 Output Total 2600 Balance -2120 Weight 97 kg - PIH/Pre-Eclampsia DTR's: 1 + Clonus: Negative Headache: Absent Epigastric Pain: No Visual Changes: No - Dressing Removed: No Incision: Dressing, Well Approximated Closure Type: op site - Lochia Lochia Amount: Small 10-25 ml Lochia Color: Rubra/Red - Abdomen Description: Soft, Round Hernia Present: No Bowel Sounds: Normoactive Flatus Presence: Present Stool: No Fundal Description: Firm, Midline Fundal Height: u/u - u/2 Objective-Diagnostic Laboratory: 04/06/20 06:42 Assessment and Plan(PN) - Time Spent with Patient Medications reviewed and adjusted accordingly: Yes - Disposition Anticipated Discharge: Home
[2020-04-07] MEDS: DOCUSATE SODIUM 100 MG CAPSULE PO SCH ×2 (09:54→17:20)
[2020-04-07] MEDS: PRENATAL VITAMIN W DHA CAPSULE PO SCH (09:54)
[2020-04-07 10:15] LABS: HEMATOCRIT 20.8 % (36.0-47.0); MEAN CORPUSCULAR HEMOGLOBIN 28.7 pg (27.0-33.4); MEAN CORPUSCULAR HGB CONC 33.4 g/dL (32.0-36.0); MEAN CORPUSCULAR VOLUME 86 fl (80-97); PLATELET COUNT 166 10^3/uL (150-450); RED BLOOD COUNT 2.41 10^6/uL (3.72-5.28); WHITE BLOOD COUNT 8.8 10^3/uL (4.0-10.5)
[2020-04-07 10:18] LABS: HEMOGLOBIN 6.9 g/dL (12.0-15.5)
[2020-04-07] MEDS: FERROUS SULFATE 325 MG TABLET PO SCH ×2 (10:59→17:20)
[2020-04-07 15:26] VITALS: BP 135/76
--- NOTE | 2020-04-07 16:43 | PDOC DISCHARGE SUMMARY ---
Impression - Admit/DC Date/PCP Admission Date/Primary Care Provider: 04/05/20 08:29 JONATHON MURRAY MD Discharge Date: 04/07/20 - Discharge Diagnosis (1) ADD on [employer] Is this a current diagnosis for this admission?: Yes (2) Delivery by section Is this a current diagnosis for this admission?: Yes (3) premature rupture of membranes (PPROM) delivered, current hospitalization Is this a current diagnosis for this admission?: Yes (4) Anemia Is this a current diagnosis for this admission?: Yes (5) Complete placenta previa with hemorrhage, third trimester Is this a current diagnosis for this admission?: Yes - Additional Information Resuscitation Status: Full Code Discharge Diet: Regular Discharge Activity: Activity As Tolerated, Balance Activity w/Rest, No Lifting Over 10 Pounds, No Lifting/Push/Pulling, Pelvic Rest, Slowly Increase Activity, No tub bath Referrals: JONATHON MURRAY MD [Primary Care Provider] - Prescriptions: Docusate Sodium [Colace 100 mg Capsule] 100 mg PO BID #60 capsule Ferrous Sulfate [Feosol 325 mg Tablet] 325 mg PO BID #60 tablet Ibuprofen [Motrin 800 mg Tablet] 800 mg PO Q6 #30 tablet Home Medications: Lisdexamfetamine Dimesylate [Vyvanse] 50 mg PO DAILY 03/19/20 Prenat 115/Iron Fum/Folic/Dss [ 19 Tablet] 1 tab PO DAILY 03/19/20 Docusate Sodium [Colace 100 mg Capsule] 100 mg PO BID #60 capsule 04/07/20 Ferrous Sulfate [Feosol 325 mg Tablet] 325 mg PO BID #60 tablet 04/07/20 Ibuprofen [Motrin 800 mg Tablet] 800 mg PO Q6 #30 tablet 04/07/20 HPI Gestational Age: 34w 2d Reason(s) for Admission: Obstetric Complications Procedures: Ultrasound Intrapartum Procedure(s): : Low Cervical, Transverse - Placenta previa w bleeding Results Laboratory Results: WBC 8.8 10^3/uL (4.0-10.5) 04/07/20 09:40 RBC 2.41 10^6/uL (3.72-5.28) L 04/07/20 09:40 Hgb 6.9 g/dL (12.0-15.5) L 04/07/20 09:40 Hct 20.8 % (36.0-47.0) L 04/07/20 09:40 MCV 86 fl (80-97) 04/07/20 09:40 MCH 28.7 pg (27.0-33.4) 04/07/20 09:40 MCHC 33.4 g/dL (32.0-36.0) 04/07/20 09:40 RDW 15.0 % (11.5-14.0) H 04/07/20 09:40 Plt Count 166 10^3/uL (150-450) 04/07/20 09:40 Lymph % (Auto) 18.3 % (13-45) 04/05/20 08:46 [place] % (Auto) 6.4 % (3-13) 04/05/20 08:46 Eos % (Auto) 0.5 % (0-6) 04/05/20 08:46 Baso % (Auto) 0.3 % (0-2) 04/05/20 08:46 Absolute Neuts (auto) 6.0 10^3/uL (1.7-8.2) 04/05/20 08:46 Absolute Lymphs (auto) 1.5 10^3/uL (0.5-4.7) 04/05/20 08:46 Absolute Monos (auto) 0.5 10^3/uL (0.1-1.4) 04/05/20 08:46 Absolute Eos (auto) 0.0 10^3/uL (0.0-0.6) 04/05/20 08:46 Absolute Basos (auto) 0.0 10^3/uL (0.0-0.2) 04/05/20 08:46 Seg Neutrophils % 74.5 % (42-78) 04/05/20 08:46 Urine Color YELLOW 04/05/20 08:29 Urine Appearance SLIGHTLY-CLOUDY 04/05/20 08:29 Urine pH 6.0 (5.0-9.0) 04/05/20 08:29 Ur Specific [place] 1.014 04/05/20 08:29 Urine Protein 30 mg/dL (NEGATIVE) H 04/05/20 08:29 Urine Glucose (UA) NEGATIVE mg/dL (NEGATIVE) 04/05/20 08:29 Urine Ketones NEGATIVE mg/dL (NEGATIVE) 04/05/20 08:29 Urine Blood LARGE (NEGATIVE) H 04/05/20 08:29 Urine Nitrite NEGATIVE (NEGATIVE) 04/05/20 08:29 Urine Bilirubin NEGATIVE (NEGATIVE) 04/05/20 08:29 Urine Urobilinogen NEGATIVE mg/dL (<2.0) 04/05/20 08:29 Ur Leukocyte Esterase NEGATIVE (NEGATIVE) 04/05/20 08:29 Urine RBC (Auto) >182 /HPF 04/05/20 08:29 Urine Bacteria (Auto) TRACE /HPF 04/05/20 08:29 Squamous Epi Cells Auto 8 /HPF 04/05/20 08:29 Urine Mucus (Auto) RARE /LPF 04/05/20 08:29 Urine Ascorbic Acid NEGATIVE (NEGATIVE) 04/05/20 08:29 Membranes Rupture POSITIVE (NEGATIVE) H 04/05/20 08:03 Urine Opiates Screen NEGATIVE 04/05/20 08:29 Urine Methadone Screen NEGATIVE 04/05/20 08:29 Ur Barbiturates Screen NEGATIVE 04/05/20 08:29 Ur Phencyclidine Scrn NEGATIVE 04/05/20 08:29 Ur Amphetamines Screen UNCONFIRMED POSITIVE 04/05/20 08:29 U Benzodiazepines Scrn NEGATIVE 04/05/20 08:29 Urine Cocaine Screen NEGATIVE 04/05/20 08:29 U Marijuana (THC) Screen NEGATIVE 04/05/20 08:29 RPR NONREACTIVE (NONREACTIVE) 04/05/20 08:46 Blood Type A POSITIVE 04/05/20 08:46 Antibody Screen NEGATIVE 04/05/20 08:46 Plan Plan of Treatment: Follow up 1 wk from c/s at [facility] Time Spent: Less than 30 Minutes
--- NOTE | 2020-04-08 11:17 | Delivery Summary ---
Del Sum A-C Datetime Report Generated by CPN: 04/08/2020 11:17 DELIVERY PERSONNEL DELIVERY PERSONNEL: [id number] Delivery Doctor:: Richar Soria MD RECORDS COORDINATOR:: Anthony Arnett CRNA Labor and Delivery Nurse:: Leonela Baez RN Teen Counselor:: Leonela Baez RN Neonatal Nurse Practitioner:: MAYNOR Torres Nursery Nurse:: Mindi Fu RN Can Vacuum Tester/SEMI CONDUCTOR ASSEMBLER: Becca Zambrano, CATH LAB Can Vacuum Tester/SEMI CONDUCTOR ASSEMBLER: Nora Lopez, ST MATERNAL INFORMATION Delivery Anesthesia: Spinal Medications After Delivery: Pitocin 30 Units in 500ml NS/D5W Delivery QBL: 1690 Maternal Complications: Placenta Previa LABOR SUMMARY EDC: 05/15/2020 00:00 No. Babies in Womb: 1 Attempted: No Labor Anesthesia: None LABOR INFORMATION Reason for Induction: Not Applicable Oxytocin: N/A Group B Beta Strep: negative Steroids Given: Full Course; > 24 Hours before Delivery Reason Steroids Not Administered: Indication MEMBRANES Membranes Rupture Method: Spontaneous Rupture of Membranes: 04/05/2020 07:00 Length of Rupture (hr): 3.43 Amniotic Fluid Color: Clear Amniotic Fluid Amount: Small STAGES OF LABOR Stage 3 hr: 0 Stage 3 min: 3 VAGINAL DELIVERY Episiotomy: None Laceration #1: None Laceration Extension #1: N/A Laceration Repair: Not Applicable Sponge Count Correct: N/A Sharps Count Correct: N/A CSECTION DELIVERY Primary Indication: Placenta Previa CSection Urgency: Non-Scheduled CSection Incidence: Primary Labor: No Labor Elective: Nonelective CSection Incision: Lower Uterine Transverse BABY A INFORMATION Delivery Date/Time: 04/05/2020 10:26 Method of Delivery: Nurse Controlled Delivery: No Born in Route : No : N/A Forceps: N/A Vacuum Extraction: N/A Shoulder Dystocia : No PRESENTATION/POSITION BABY A Presentation: Cephalic Cephalic Presentation: Vertex Breech Presentation: N/A PLACENTA INFORMATION BABY A Placenta Delivery Time : 04/05/2020 10:29 Placenta Method of Delivery: Expressed Placenta Status: Delivered SCORES BABY A Heart Rate 1 min: >100 bpm Resp Effort 1 min: Good Cry Reflex Irritability 1 min: Cough or Sneeze or Pulls Away Muscle Tone 1 min: Some Flexion of Extremities Color 1 min: Body Prue, Extremities Blue Resuscitation Effort 1 min: Tactile Stimulation SCORE 1 MIN: 8 Heart Rate 5 min: >100 bpm Resp Effort 5 min: Good Cry Reflex Irritability 5 min: Cough or Sneeze or Pulls Away Muscle Tone 5 min: Some Flexion of Extremities Color 5 min: Body Prue, Extremities Blue Resuscitation Effort 5 min: Tactile Stimulation; Oxygen; PPV/NCPAP SCORE 5 MIN: 8 INFANT INFORMATION BABY A Gestational Age at Delivery: 34.2 Gestational Status: Late - 34- 36.6 Weeks Outcome : Liveborn Infant Condition : Stable Infant Sex: Female IDENTIFICATION BABY A Infant Verification Date/Time: 04/05/2020 10:37 ID Band Number: [id number] Mother's Name Verified: Yes Infant RN Verifying Infant: CNelda Sanchez RN ; B. Fausto, RN WEIGHT/LENGTH BABY A Birthweight (gm): 2625 Weight (lb): 5 Infant Weight (oz): 13 Length (in): 18.75 Length (cm): 47.63 CORD INFORMATION BABY A No. Cord Vessels: 3 Nuchal Cord : N/A Cord Blood Taken: Yes-For Storage (Mom's Blood type +) BABY B INFORMATION : N/A
== END 2020-04-07 18:22 | disposition home or self-care (01) | DRG 787 ==
LOC: LC 07:32 → LR 08:29 → 2S 13:06
PROVIDERS: ADMIT Obstetrics & Gynecology; ATTEND Obstetrics & Gynecology
PROC: 10D00Z1 Extraction of Products of Conception, Low, Open Approach (ICD-10-PCS; principal; 2020-04-05)
DX: O44.13 Complete placenta previa with hemorrhage, third trimester (principal); D62 Acute posthemorrhagic anemia; O72.0 Third-stage hemorrhage; O43.213 Placenta accreta, third trimester; O32.1XX0 Maternal care for breech presentation, not applicable or unspecified; O42.013 Preterm premature rupture of membranes, onset of labor within 24 hours of rupture, third trimester; O99.02 Anemia complicating childbirth; Z3A.34 34 weeks gestation of pregnancy; Z37.0 Single live birth
CPT/HCPCS: 1961; 36415; 80307; 81001; 84112; 85025; 85027; 86592; 86850; 86900; 86901; 94760; 94799; 99140; J0131; J0456; J0690; J1170; J1756; J1885; J2250; J2405; J2550; J2590; J3010; J3490; J7120